=== PATIENT | female | born 1975 | race Two or more races ===

== ENCOUNTER 2017-04-24 11:49 | Emergency (ER) | payer MEDICAID ==
[~2017-04-24] VITALS: Ht 154.9 cm; Wt 68.0 kg
[2017-04-24 12:25] LABS: Basophils # (auto) 0 uL; Basophils % (auto) 0.7 % (0.0-2.0); CONDITION Y; Eosinophils # (auto) 0.1 uL; Eosinophils % (auto) 1.4 % (0.0-7.0); Hematocrit 44.5 % (36.0-46.0); Hemoglobin 15.2 g/dL (12.2-16.2); Lymphocytes # (auto) 1.9 uL; Lymphocytes % (auto) 32.7 % (10.0-50.0); Mean Corpuscular Hemoglobin 32.8 pg (28.0-32.0); Mean Corpuscular Hgb Conc. 34.2 g/dL (32.0-36.0); Mean Platelet Volume 8.4 fL (7.4-10.4); Monocytes # (auto) 0.4 uL; Monocytes % (auto) 6.8 % (0.0-12.0); Neutrophils # (auto) 3.4 uL; Neutrophils % (auto) 58.4 % (37.0-80.0); Platelet Count (auto) 253 10^3/uL (140-450); White Blood Cell 5.8 10^3/uL (4.4-10.8)
[2017-04-24 13:16] LABS: Albumin 3.9 g/dL (3.4-5.0); Alkaline Phosphatase 52 U/L (45-117); Anion Gap 7 (5-15); Aspartate Aminotransferase 15 U/L (15-37); BUN/Creatinine Ratio 19.7; Bilirubin, Total 0.4 mg/dL (0.2-1.0); Blood Urea Nitrogen 13 mg/dL (7-18); Calcium 8.6 mg/dL (8.5-10.1); Carbon Dioxide 26 mmol/L (21-32); Chloride 108 mmol/L (98-107); GFR African American 128 mL/min; GFR Non-African American 105 mL/min; Glucose 107 mg/dL (74-106); Magnesium 2.3 mg/dL (1.6-2.6); Potassium 4.3 mmol/L (3.5-5.1); Sodium 141 mmol/L (136-145); Total Protein 7.2 g/dL (6.4-8.2)
[2017-04-24 22:00] VITALS: BP 127/79
[2017-04-24] MEDS ORDERED: SODIUM CHLORIDE 0.9% 1,000 ML IV ONE (23:00)
[2017-04-24] MEDS ORDERED: ONDANSETRON HCL 4 MG/2 ML VIAL IV ONE (23:00)
[2017-04-24 23:18] LABS: Basophils # (auto) 0.1 uL; Basophils % (auto) 0.8 % (0.0-2.0); CONDITION Y; Eosinophils # (auto) 0.1 uL; Eosinophils % (auto) 1.7 % (0.0-7.0); Hematocrit 40.4 % (36.0-46.0); Hemoglobin 13.9 g/dL (12.2-16.2); Lymphocytes # (auto) 3.1 uL; Lymphocytes % (auto) 40.1 % (10.0-50.0); Mean Corpuscular Hgb Conc. 34.3 g/dL (32.0-36.0); Mean Corpuscular Volume 96.1 fL (80.0-100.0); Mean Platelet Volume 8.3 fL (7.4-10.4); Monocytes # (auto) 0.6 uL; Monocytes % (auto) 7.6 % (0.0-12.0); Neutrophils # (auto) 3.8 uL; Neutrophils % (auto) 49.8 % (37.0-80.0); Platelet Count (auto) 244 10^3/uL (140-450); White Blood Cell 7.7 10^3/uL (4.4-10.8)
[2017-04-24 23:39] LABS: Albumin 3.3 g/dL (3.4-5.0); BUN/Creatinine Ratio 21.8; Calcium 8.5 mg/dL (8.5-10.1); Potassium 3.6 mmol/L (3.5-5.1)
[2017-04-24 23:42] LABS: Bilirubin, Total 0.3 mg/dL (0.2-1.0)
[2017-04-24] MEDS ORDERED: ACETAMINOPHEN 325 MG TAB PO ONE (23:45)
== END 2017-04-25 01:56 | disposition home or self-care (01) ==
LOC: EDUNIT# 11:49 → ER 11:49
DX: N20.0 Calculus of kidney (principal); N23 Unspecified renal colic; R42 Dizziness and giddiness; Z90.710 Acquired absence of both cervix and uterus
CPT/HCPCS: 36415; 74176; 80053; 83690; 83735; 84484; 85025; 93005; 96361; 96374; 99285; J2405; J7030

== ENCOUNTER 2019-03-30 07:21 | Emergency (ER) | payer MEDICAID ==
[~2019-03-30] VITALS: Ht 154.9 cm; Wt 77.1 kg
[2019-03-30 08:05] LABS: Basophils # (auto) 0.1 uL; Basophils % (auto) 0.7 % (0.0-2.0); Eosinophils # (auto) 0 uL; Eosinophils % (auto) 0.2 % (0.0-7.0); Hematocrit 49.5 % (36.0-46.0); Hemoglobin 16.7 g/dL (12.2-16.2); Lymphocytes # (auto) 2.2 uL; Lymphocytes % (auto) 23.2 % (10.0-50.0); Mean Corpuscular Hemoglobin 32.8 pg (28.0-32.0); Mean Corpuscular Hgb Conc. 33.7 g/dL (32.0-36.0); Mean Corpuscular Volume 97.2 fL (80.0-100.0); Monocytes # (auto) 0.5 uL; Monocytes % (auto) 5.5 % (0.0-12.0); Neutrophils # (auto) 6.7 uL; Neutrophils % (auto) 70.4 % (37.0-80.0); Nucleated Red Blood Cells % 0.1 %; Platelet Count (auto) 271 10^3/uL (140-450); Red Cell Distribution Width 13.4 % (11.8-14.3); White Blood Cell 9.6 10^3/uL (4.4-10.8)
[2019-03-30 08:26] LABS: Albumin 3.7 g/dL (3.4-5.0); Calcium 7.9 mg/dL (8.5-10.1); Potassium 3.3 mmol/L (3.5-5.1)
[2019-03-30 08:28] LABS: BUN/Creatinine Ratio 13.6; Bilirubin, Total 0.4 mg/dL (0.2-1.0)
[2019-03-30] MEDS ORDERED: SODIUM CHLORIDE 0.9% 1,000 ML IV ONE ×2 (09:00→11:45)
[2019-03-30 10:03] LABS: Urine Bacteria FEW /hpf (None Seen); Urine Blood Negative /uL (Negative); Urine Mucus FEW (None Seen); Urine Specific Gravity 1.024 (1.001-1.035); Urine WBC 4 /hpf (0 - 5)
[2019-03-30 10:14] LABS: Amphetamine Screen, Urine NEGATIVE (NEGATIVE); Barbiturate Scree,Urine NEGATIVE (NEGATIVE); Benzodiazephine Screen, Urine POSITIVE (NEGATIVE); Cannabinoid Screen, Urine NEGATIVE (NEGATIVE); Cocaine Screen, Urine NEGATIVE (NEGATIVE); Opiate Scree,Urine NEGATIVE (NEGATIVE); Phencyclidine Screen, Urine NEGATIVE (NEGATIVE)
[2019-03-30] MEDS ORDERED: hydrOXYzine 25 MG TAB or CAP PO ONE (10:45)
[2019-03-30] MEDS ORDERED: cefTRIAXone 1GM/50ML D5W 50 ML IV ONE (10:45)
[2019-03-30] MEDS ORDERED: LORazepam 2MG/ML-1ML VIAL IV ONE (11:45)
[2019-03-30 12:36] VITALS: BP 109/76
== END 2019-03-30 13:39 | disposition home or self-care (01) ==
LOC: ER 07:27
DX: F13.239 Sedative, hypnotic or anxiolytic dependence with withdrawal, unspecified (principal); F41.9 Anxiety disorder, unspecified; F10.10 Alcohol abuse, uncomplicated; N39.0 Urinary tract infection, site not specified; E87.6 Hypokalemia; F32.9 Major depressive disorder, single episode, unspecified; Z90.710 Acquired absence of both cervix and uterus; Y90.6 Blood alcohol level of 120-199 mg/100 ml
CPT/HCPCS: 36415; 80053; 80307; 80320; 81001; 85025; 96365; 96375; 99284; J0696; J2060; J7030